=== PATIENT | female | born 1975 | race Caucasian/White ===

== ENCOUNTER 2022-01-06 14:51 | Emergency (ER) | payer BC ==
[~2022-01-06] VITALS: Ht 162.6 cm; Wt 100.4 kg
[2022-01-06 15:09] VITALS: BP 110/76
--- NOTE | 2022-01-06 16:11 | NUR ---
Patient ambulated to bed 8.
--- NOTE | 2022-01-06 16:23 | NUR ---
46 y/o female with c/o left ear pain d/t getting Q-tip stuck in ear. Patient is c/o / pain. Patient was reffered from [facility]. Medical History: Denies NKDA
[2022-01-06 17:19] VITALS: BP 141/87
--- NOTE | 2022-01-06 17:19 | NUR ---
Patient discharged with v/s stable. Written and verbal after care instructions given. Patient verbalized understanding. Ambulatory with steady gait. All questions addressed prior to discharge. Advised to follow up with PMD. WORK NOTE HANDED TO PATIENT.
== END 2022-01-06 17:19 | disposition home or self-care (01) ==
LOC: MED 14:51
DX: T16.2XXA Foreign body in left ear, initial encounter (principal); X58.XXXA Exposure to other specified factors, initial encounter; Y93.89 Activity, other specified; Y92.89 Other specified places as the place of occurrence of the external cause; Y99.8 Other external cause status
CPT/HCPCS: 69200; 99284